=== PATIENT | female | born 1950 | race Caucasian/White ===

== ENCOUNTER 2016-12-16 20:03 | Inpatient (IN) | payer MEDICARE, OTHER ==
--- NOTE | 2016-12-16 20:37 | ED Physician Chart ---
Chief Complaint/HPI - Patient Information Date Seen:: 12/16/16 Time Seen:: 20:30 Chief Complaint:: aggressive behavior History of Present Illness:: Patient has apparently been striking out and being combative at her snf facility. She has reportedly been increasingly agitated and increasingly confused. Allergies:: Allergies Allergy/AdvReac Type Severity Reaction Status Date / Time No Known Allergies Allergy Verified 12/16/16 20:16 Vitals:: Vital Signs - 8 hr 12/16/16 20:10 Temp 97.9 F HR 80 RR 19 BP 146/70 O2 Sat % 97 Historian:: Patient Review:: Nurse's Note Reviewed, Transfer documents Reviewed Review of Systems - Review of Systems General/Constitutional: No fever, No chills Skin: No skin lesions Head: No headache Eyes: No loss of vision ENT: No earache Neck: No neck pain Cardio Vascular: No chest pain, No palpitations Pulmonary: No SOB GI: No nausea, No vomiting, No diarrhea G/U: No dysuria Musculoskeletal: No bone or joint pain Endocrine: No polyuria Psychiatric: Prior psych history Hematopoietic: No bruising Allergic/Immuno: No urticaria, No angioedema Neurological: No syncope Past Medical History - Past Medical History Past Medical History: Dementia Family History: Other (unavailable) Social History: Smoker, Care Facility Surgical History: other Psychiatricy History: Dementia, Other (schizoaffective this) Medication: Reviewed Family Medical History - Family Member Mother History Unknown: Yes Physical Exam - Physical Examination Other Gen/Cons comments:: Mildly chronically ill-appearing; patient is alert and oriented to the correct year but not the month or date. Head: Atraumatic Eyes: Lids, conjuctiva normal Other Eyes comments:: Cataract right eye Skin: Nl inspection ENMT: External ears, nose nl, Oropharynx nl Other ENMT comments:: Edentulous Neck: No nuchal rigidity Respiratory: Nl effort/Exclusion, Clear to Auscultation Cardio Vascular: RRR, No murmur, gallop, rubs, NL S1 S2 GI: No tenderness/rebounding/guarding : No CVA tenderness Other Extremities comments:: 2 x 1 cm crusted abrasion dorsum left hand Neuro/Psych: No focal deficits Misc: No paraspinal tenderness Labs/Radiology/EKG Results - Lab Results Results: Laboratory Results - last 24 hr 12/16/16 12/16/16 22:10 22:10 WBC 4.6 L RBC 4.22 Hgb 12.1 Hct 36.9 MCV 87.4 MCH 28.7 MCHC Differential 32.9 RDW 17.4 Plt Count 292 MPV 6.7 Neutrophils (Manual) 41 Lymphocytes 39 Monocytes 7 Eosinophils 8 H Basophils 5 H Platelet Estimate ADEQUATE Sodium 139 Potassium 5.0 Chloride 109 H Carbon Dioxide 27.9 Anion Gap 7.1 BUN 31 H Creatinine 1.4 H Est GFR ( Amer) 48.2 Est GFR (Non-Af Amer) 39.9 BUN/Creatinine Ratio 22.1 Glucose 110 H Calcium 11.4 H Total Bilirubin 0.3 AST 17 ALT 14 Alkaline Phosphatase 88 Total Protein 7.4 Albumin 4.1 Globulin 3.3 Albumin/Globulin Ratio 1.2 - EKG Interpretations Rate & Rhythm: normal sinus rhythm with a rate of 66 [place]: normal ED Septic Shock - . Is Septic Shock (SBP<90, OR Lactate>4 mmol\L) present?: No - <6hrs of presentation: Vital Signs: Vital Signs - 8 hr 12/16/16 20:10 Temp 97.9 F HR 80 RR 19 BP 146/70 O2 Sat % 97 Reassessment (Disposition) - Reassessment Reassessment Condition:: Unchanged - Diagnosis Diagnosis:: Dementia with agitation - Patient Disposition Admitted to:: [facility] Admitting Medical Physician:: Vick Hurd Admitting Psych Physician:: Eufemia Griffin Condition at Disposition:: Stable, Unchanged
[2016-12-16 22:18] LABS: HEMATOCRIT 36.9 % (35.0-45.0); HEMOGLOBIN 12.1 gm/dL (11.7-16.1); MEAN CELL VOLUME 87.4 fl (81-100); MEAN CORPUSCULAR HEMOGLOBIN 28.7 pg (27.0-31.0); MEAN CORPUSCULAR HGB CONC 32.9 pg (28.0-36.0); MEAN PLATELET VOLUME 6.7 fl; PLATELET COUNT 292 Th/cmm (150-400); RED BLOOD COUNT 4.22 Mil/cmm (3.80-5.20); RED CELL DISTRIBUTION WIDTH 17.4 % (11.5-20.0); WHITE BLOOD COUNT 4.6 Th/cmm (4.8-10.8)
[2016-12-16 22:33] LABS: ALB/GLOB RATIO 1.2 (1.0-1.8); ANION GAP 7.1 (7.0-16.0); BILIRUBIN,TOTAL 0.3 mg/dL (0.3-1.0); BUN/CREATININE RATIO 22.1; CALCIUM SERUM 11.4 mg/dL (8.6-10.3); CARBON DIOXIDE 27.9 mEq/L (21.0-31.0); CREATININE - SERUM 1.4 mg/dL (0.6-1.2)
[2016-12-16 22:41] LABS: BASOPHIL 5 % (0-3); EOSINOPHIL 8 % (0-5); NEUTROPHILS 41 % (40-80); TOTAL CELLS COUNTED 100
[2016-12-16 22:42] LABS: PLATELET ESTIMATE ADEQUATE (NORMAL)
[2016-12-16 23:33] LABS: URINE BILIRUBIN NEGATIVE (NEGATIVE); URINE BLOOD SMALL (NEGATIVE); URINE COLOR STRAW; URINE GLUCOSE (UA) NEGATIVE (NEGATIVE); URINE KETONE NEGATIVE (NEGATIVE); URINE PROTEIN NEGATIVE (NEGATIVE); URINE UROBILINOGEN 0.2 E.U./dL (0.2 - 1.0)
[2016-12-16 23:34] LABS: URINE BACTERIA MODERATE /hpf (NONE SEEN); URINE EPITHELIAL CELLS FEW /lpf (FEW); URINE WBC >100 /hpf (0-5)
[2016-12-17] MEDS ORDERED: Magnesium Hydroxide (MOM) 30 mL UDC PO PRN (01:03)
[2016-12-17] MEDS ORDERED: Maalox 30 mL Cup PO PRN (01:03)
[2016-12-17 01:04] VITALS: BP 127/78
--- NOTE | 2016-12-17 09:03 | History and Physical ---
History of Present Illness - HPI Chief Complaint: Increased in agitation HPI: Patient was send from SNF due that she became agitated, and aggressive to employes. Vital Signs: Last Vital Signs Temp 96.8 F 12/17/16 07:07 Pulse 75 12/17/16 07:07 Resp 20 12/17/16 07:07 BP 142/72 12/17/16 07:07 Pulse Ox 92 12/17/16 07:07 Past Medical History Pulmonary: Report: No Pertinent Hx CHEFS: Report: No Pertinent Hx GI: Report: No Pertinent Hx Psych: Report: Psychosis, Other (Dementia) Musculoskeletal: Report: Weakness Rheumatologic: Report: No pertinent Hx Infectious Disease: Report: No Pertinent Hx Renal/: Report: No Pertinent Hx Endocrine: Report: No Pertinent Hx Dermatology: Report: No Pertinent Hx - Past Surgical History Past Surgical History: No pertinent Hx Family Medical History - Family Member Mother History Unknown: Yes Ethnicity: Unknown Living Status: Unknown Hx Family Cancer: (Unknown) Hx Family Coronary Artery Disease: (Unknown) Hx Family Congestive Heart Failure: (Unknown) Hx Family Hypertension: (Unknown) Hx Family Stroke: (Unknown) Hx Family Diabetes: (Unknown) Hx Family Seizures: (Unknown) Hx Family Dementia: (Unknown) Hx Family AIDS: (Unknown) Hx Family COPD: (Unknown) Hx Family Hepatitis: (Unknown) Hx Family Psychiatric Problems: (Unknown) Hx Family Tuberculosis: (Unknown) Social History Smoke: No Alcohol: None Drugs: None Lives: [place] Domestic Violence: Negative Health Maintenance Health Maintenance: Cholesterol - Medications Home Medications: Home Medication Medication Instructions Recorded Type Acetaminophen [Tylenol] 650 mg PO Q4HR PRN 12/16/16 History Alendronate Sodium 70 mg PO QWEEK 0730 12/16/16 History Amlodipine Besylate 10 mg PO DAILY 12/16/16 History Carbidopa/Levodopa 10/100mg 1 tab PO TID 12/16/16 History [Sinemet 10 mg-100 mg] Cholecalciferol (Vitamin D3) 400 unit PO DAILY 12/16/16 History [Vitamin D3] Divalproex DR [Depakote DR] 500 mg PO BID 12/16/16 History Divalproex Sodium [Depakote] 500 mg PO BID 12/16/16 History Famotidine 20 mg PO DAILY 12/16/16 History Lorazepam [Ativan] 0.5 mg PO BID PRN 12/16/16 History QUEtiapine Fumarate [SEROquel] 600 mg PO HS 12/16/16 History Sertraline [Zoloft] 50 mg PO DAILY 12/16/16 History Zolpidem Tartrate [Ambien] 5 mg PO HS PRN 12/16/16 History - Allergies Allergies/Adverse Reactions: Allergies Allergy/AdvReac Type Severity Reaction Status Date / Time No Known Allergies Allergy Verified 12/16/16 20:16 Review of Systems - Review of Systems Constitutional: Report: No Significant Eyes: Report: No Significant ENT: Report: No Significant Respiratory: Report: No Significant Cardiovascular: Report: No Significant Gastrointestinal: Report: No Significant Genitourinary: Report: No Significant Musculoskeletal: Report: No Significant Skin: Report: No Significant Neurological: Report: Weakness Physical Exam - Physical Exam HEENT: Report: Ears Nose Throat within normal limits Neck: Report: Within normal limits Cardiovascular Systems: Report: Regular, Rate and Rhythm Respiratory: Report: Breath Sounds are within normal limits Abdomen: Report: Non-tender to palpation Back: Report: Inspection of back is within normal limits. Extremities: Report: Non-tender to palpation. Skin: Report: Color of skin is within normal limits Neuro/Psych: Report: No motor deficit - Lab Results All Lab Results last 24 hours: Laboratory Last Values WBC 4.6 Th/cmm (4.8-10.8) L 12/16/16 22:10 RBC 4.22 Mil/cmm (3.80-5.20) 12/16/16 22:10 Hgb 12.1 gm/dL (11.7-16.1) 12/16/16 22:10 Hct 36.9 % (35.0-45.0) 12/16/16 22:10 MCV 87.4 fl (81-100) 12/16/16 22:10 MCH 28.7 pg (27.0-31.0) 12/16/16 22:10 MCHC Differential 32.9 pg (28.0-36.0) 12/16/16 22:10 RDW 17.4 % (11.5-20.0) 12/16/16 22:10 Plt Count 292 Th/cmm (150-400) 12/16/16 22:10 MPV 6.7 fl 12/16/16 22:10 Neutrophils (Manual) 41 % (40-80) 12/16/16 22:10 Lymphocytes 39 % (20-50) 12/16/16 22:10 Monocytes 7 % (2-10) 12/16/16 22:10 Eosinophils 8 % (0-5) H 12/16/16 22:10 Basophils 5 % (0-3) H 12/16/16 22:10 Platelet Estimate ADEQUATE (NORMAL) 12/16/16 22:10 Sodium 139 mEq/L (136-145) 12/16/16 22:10 Potassium 5.0 mEq/L (3.5-5.1) 12/16/16 22:10 Chloride 109 mEq/L (98-107) H 12/16/16 22:10 Carbon Dioxide 27.9 mEq/L (21.0-31.0) 12/16/16 22:10 Anion Gap 7.1 (7.0-16.0) 12/16/16 22:10 BUN 31 mg/dL (7-25) H 12/16/16 22:10 Creatinine 1.4 mg/dL (0.6-1.2) H 12/16/16 22:10 Est GFR ( Amer) 48.2 ml/min (>90) 12/16/16 22:10 Est GFR (Non-Af Amer) 39.9 ml/min 12/16/16 22:10 BUN/Creatinine Ratio 22.1 12/16/16 22:10 Glucose 110 mg/dL (70-105) H 12/16/16 22:10 Calcium 11.4 mg/dL (8.6-10.3) H 12/16/16 22:10 Total Bilirubin 0.3 mg/dL (0.3-1.0) 12/16/16 22:10 AST 17 U/L (13-39) 12/16/16 22:10 ALT 14 U/L (7-52) 12/16/16 22:10 Alkaline Phosphatase 88 U/L (34-104) 12/16/16 22:10 Total Protein 7.4 gm/dL (6.0-8.3) 12/16/16 22:10 Albumin 4.1 gm/dL (3.7-5.3) 12/16/16 22:10 Globulin 3.3 gm/dL 12/16/16 22:10 Albumin/Globulin Ratio 1.2 (1.0-1.8) 12/16/16 22:10 TSH 1.92 uIU/ml (0.34-5.60) 12/16/16 22:10 Urine Source CLEAN C 12/16/16 23:00 Urine Color STRAW 12/16/16 23:00 Urine Clarity HAZY (CLEAR) 12/16/16 23:00 Urine pH 7.0 12/16/16 23:00 Ur Specific [place] 1.015 (1.005-1.030) 12/16/16 23:00 Urine Protein NEGATIVE mg/dL (NEGATIVE) 12/16/16 23:00 Urine Glucose (UA) NEGATIVE mg/dL (NEGATIVE) 12/16/16 23:00 Urine Ketones NEGATIVE mg/dL (NEGATIVE) 12/16/16 23:00 Urine Blood SMALL (NEGATIVE) H 12/16/16 23:00 Urine Nitrate NEGATIVE (NEGATIVE) 12/16/16 23:00 Urine Bilirubin NEGATIVE (NEGATIVE) 12/16/16 23:00 Urine Urobilinogen 0.2 E.U./dL (0.2 - 1.0) 12/16/16 23:00 Ur Leukocyte Esterase LARGE (NEGATIVE) H 12/16/16 23:00 Urine RBC 2-5 /hpf (0-5) 12/16/16 23:00 Urine WBC >100 /hpf (0-5) H 12/16/16 23:00 Ur Epithelial Cells FEW /lpf (FEW) 12/16/16 23:00 Urine Bacteria MODERATE /hpf (NONE SEEN) 12/16/16 23:00 Laboratory Results - last 24 hr 12/16/16 23:00 Urine Source CLEAN C Urine Color STRAW Urine Clarity HAZY Urine pH 7.0 Ur Specific [place] 1.015 Urine Protein NEGATIVE Urine Glucose (UA) NEGATIVE Urine Ketones NEGATIVE Urine Blood SMALL H Urine Nitrate NEGATIVE Urine Bilirubin NEGATIVE Urine Urobilinogen 0.2 Ur Leukocyte Esterase LARGE H Urine RBC 2-5 Urine WBC >100 H Ur Epithelial Cells FEW Urine Bacteria MODERATE - Assessment Assessment: patient is awake, calm in no acute distress. Dx: increased in agitaion, Psychosis, Dementia - Plan Plan: Patient follow by psychiatry. Will continue to monitor.
[2016-12-17] MEDS: Multivitamin Tab PO SCH (09:45)
[2016-12-17] MEDS ORDERED: Haloperidol Lactate 5 mg/mL 1mL Vial IM ONE (11:06)
[2016-12-17] MEDS ORDERED: Haloperidol Lactate 5 mg/mL 1mL Vial ONE (11:06)
[2016-12-17] MEDS ORDERED: chlorproMAZINE 25 mg/mL 2mL Amp ONE (17:21)
[2016-12-17] MEDS ORDERED: chlorproMAZINE 25 mg/mL 2mL Amp IM ONE (17:23)
--- NOTE | 2016-12-17 19:24 | Geri Psych History & Physical ---
[facility] Psych History & Physical - Date of Admission Date of Admission: 12/16/16 - Identifying Data Identifying Data: This is a 69-year-old woman resident of [facility]. She admitted here on a voluntary basis in view of her acute agitation and psychosis. - Chief Complaint Chief Complaint: I do not know. Informant: Patient - History of Present Illness History of Present Illness: This is the first psychiatric hospitalization to [facility] to this 66-year-old woman ,resident of [facility].. Patient is reported to have been diagnosed with schizo affective disorder and has been maintained on Seroquel and Depakote. Patient has been having difficult time and getting easily agitated and lgetting aggressive. patient's sleep and appetite are noted to be poor at the time of the admission. Patient has been screaming and yelling and has to be given Haldol and Benadryl and Ativan on couple of occasions to contain her agitated behavior. patient seems to be intellectually challenged and is not able to provide much information to me at the time of the evaluation. - Psychiatric Evaluation Psych General Appearance: Roughly stated age, Casually dressed Psych Behavior: Alert, Uncooperative, Restless, Agitated Psych Speech: Loud Psych Mood: Angry, Frustrated, Hostile, Irritable Psych Affect: Constricted, Inappropriate, Increased Intensity, Varibable Psych Thought Process: Tangential Psych Cognition: Confused Psych Insight: Impaired Psych Judgement: Impaired - Past Medical History Past Medical History: As per as "being primarily. Medication Psych: Schizophrenia Current Medications: Current Medications Acetaminophen (Tylenol) 650 mg PO Q4HR PRN PRN Reason: Mild Pain / Temp above 100 Stop: 02/15/17 01:02 Al Hydrox/Mg Hydrox/Simethicone (Maalox) 30 ml PO Q4HR PRN PRN Reason: GI DISTRESS Stop: 02/15/17 01:02 Divalproex Sodium (Depakote Dr) 500 mg PO BID [place]ADYS PRN Reason: Protocol Stop: 02/15/17 08:59 Last Admin: 12/17/16 16:58 Dose: 500 mg Lorazepam (Ativan) 0.5 mg PO BID PRN; Protocol PRN Reason: Anxiety Stop: 02/15/17 01:05 Magnesium Hydroxide (Milk Of Magnesia) 30 ml PO HS PRN PRN Reason: Constipation Multivitamins/Vitamin C (Theragran) 1 tab PO DAILY MILADYS Stop: 02/15/17 08:59 Last Admin: 12/17/16 09:45 Dose: Not Given Quetiapine Fumarate (Seroquel) 600 mg PO HS MILADYS PRN Reason: Protocol Stop: 02/15/17 20:59 Sertraline HCl (Zoloft) 50 mg PO DAILY MILADYS PRN Reason: Protocol Stop: 02/15/17 08:59 Last Admin: 12/17/16 09:45 Dose: Not Given Zolpidem Tartrate (Ambien) 5 mg PO HS PRN PRN Reason: Insomnia Stop: 02/15/17 01:02 Allergies/Adverse Reactions: Allergies Allergy/AdvReac Type Severity Reaction Status Date / Time No Known Allergies Allergy Verified 12/16/16 20:16 - Family History Family History: Details not known - Social History Social History: Resident of [facility] - ROS Review of System: See above Psychological ROS: Hostility, Irritability, Mood swings - Physical Examination Physical Exam: As per the primary care physician - Vitals and I&O Vitals and I&O: Vital Signs Temp 98.2 F 12/17/16 14:00 Pulse 72 12/17/16 14:00 Resp 18 12/17/16 14:00 BP 140/72 12/17/16 14:00 Pulse Ox 97 12/17/16 14:00 Intake & Output 12/17/16 12/17/16 12/18/16 06:59 18:59 06:59 Intake Total 1120 Balance 1120 Intake: Oral 1120 Other: # Voids 3 # Bowel Movements 1 - Impressions Impressions: Schizoaffective affect 2 disorder [place] I: Studies of affect 2 disorder [place] II: Mental retardation [place] III: As per the primary care physician - Treatment/Plan Treatment/Plan: He'll continue Seroquel and Depakote and use Ativan and Ambien and continue supportive therapy and follow this patient
[2016-12-18] MEDS: Multivitamin Tab PO SCH (08:00)
--- NOTE | 2016-12-18 09:20 | General Progress Note ---
Subjective - Review of Systems Service Date: 12/18/16 Subjective: Patient is awake, confused, in no acute distress. Objective - Results Result Diagrams: 12/16/16 22:10 12/16/16 22:10 Recent Labs: Laboratory Last Values WBC 4.6 Th/cmm (4.8-10.8) L 12/16/16 22:10 RBC 4.22 Mil/cmm (3.80-5.20) 12/16/16 22:10 Hgb 12.1 gm/dL (11.7-16.1) 12/16/16 22:10 Hct 36.9 % (35.0-45.0) 12/16/16 22:10 MCV 87.4 fl (81-100) 12/16/16 22:10 MCH 28.7 pg (27.0-31.0) 12/16/16 22:10 MCHC Differential 32.9 pg (28.0-36.0) 12/16/16 22:10 RDW 17.4 % (11.5-20.0) 12/16/16 22:10 Plt Count 292 Th/cmm (150-400) 12/16/16 22:10 MPV 6.7 fl 12/16/16 22:10 Neutrophils (Manual) 41 % (40-80) 12/16/16 22:10 Lymphocytes 39 % (20-50) 12/16/16 22:10 Monocytes 7 % (2-10) 12/16/16 22:10 Eosinophils 8 % (0-5) H 12/16/16 22:10 Basophils 5 % (0-3) H 12/16/16 22:10 Platelet Estimate ADEQUATE (NORMAL) 12/16/16 22:10 Sodium 139 mEq/L (136-145) 12/16/16 22:10 Potassium 5.0 mEq/L (3.5-5.1) 12/16/16 22:10 Chloride 109 mEq/L (98-107) H 12/16/16 22:10 Carbon Dioxide 27.9 mEq/L (21.0-31.0) 12/16/16 22:10 Anion Gap 7.1 (7.0-16.0) 12/16/16 22:10 BUN 31 mg/dL (7-25) H 12/16/16 22:10 Creatinine 1.4 mg/dL (0.6-1.2) H 12/16/16 22:10 Est GFR ( Amer) 48.2 ml/min (>90) 12/16/16 22:10 Est GFR (Non-Af Amer) 39.9 ml/min 12/16/16 22:10 BUN/Creatinine Ratio 22.1 12/16/16 22:10 Glucose 110 mg/dL (70-105) H 12/16/16 22:10 Calcium 11.4 mg/dL (8.6-10.3) H 12/16/16 22:10 Total Bilirubin 0.3 mg/dL (0.3-1.0) 12/16/16 22:10 AST 17 U/L (13-39) 12/16/16 22:10 ALT 14 U/L (7-52) 12/16/16 22:10 Alkaline Phosphatase 88 U/L (34-104) 12/16/16 22:10 Total Protein 7.4 gm/dL (6.0-8.3) 12/16/16 22:10 Albumin 4.1 gm/dL (3.7-5.3) 12/16/16 22:10 Globulin 3.3 gm/dL 12/16/16 22:10 Albumin/Globulin Ratio 1.2 (1.0-1.8) 12/16/16 22:10 TSH 1.92 uIU/ml (0.34-5.60) 12/16/16 22:10 Urine Source CLEAN C 12/16/16 23:00 Urine Color STRAW 12/16/16 23:00 Urine Clarity HAZY (CLEAR) 12/16/16 23:00 Urine pH 7.0 12/16/16 23:00 Ur Specific [place] 1.015 (1.005-1.030) 12/16/16 23:00 Urine Protein NEGATIVE mg/dL (NEGATIVE) 12/16/16 23:00 Urine Glucose (UA) NEGATIVE mg/dL (NEGATIVE) 12/16/16 23:00 Urine Ketones NEGATIVE mg/dL (NEGATIVE) 12/16/16 23:00 Urine Blood SMALL (NEGATIVE) H 12/16/16 23:00 Urine Nitrate NEGATIVE (NEGATIVE) 12/16/16 23:00 Urine Bilirubin NEGATIVE (NEGATIVE) 12/16/16 23:00 Urine Urobilinogen 0.2 E.U./dL (0.2 - 1.0) 12/16/16 23:00 Ur Leukocyte Esterase LARGE (NEGATIVE) H 12/16/16 23:00 Urine RBC 2-5 /hpf (0-5) 12/16/16 23:00 Urine WBC >100 /hpf (0-5) H 12/16/16 23:00 Ur Epithelial Cells FEW /lpf (FEW) 12/16/16 23:00 Urine Bacteria MODERATE /hpf (NONE SEEN) 12/16/16 23:00 - Physical Exam Vitals and I&O: Vital Signs Temp 97.5 F 12/18/16 06:46 Pulse 76 12/18/16 06:46 Resp 18 12/18/16 06:46 BP 146/76 12/18/16 06:46 Pulse Ox 95 12/18/16 06:46 Intake & Output 12/17/16 12/18/16 12/18/16 18:59 06:59 18:59 Intake Total 1120 120 Balance 1120 120 Intake: Oral 1120 120 Other: # Voids 3 3 # Bowel Movements 1 Active Medications: Current Medications Acetaminophen (Tylenol) 650 mg PO Q4HR PRN PRN Reason: Mild Pain / Temp above 100 Stop: 02/15/17 01:02 Al Hydrox/Mg Hydrox/Simethicone (Maalox) 30 ml PO Q4HR PRN PRN Reason: GI DISTRESS Stop: 02/15/17 01:02 Divalproex Sodium (Depakote Dr) 500 mg PO BID MILADYS PRN Reason: Protocol Stop: 02/15/17 08:59 Last Admin: 12/17/16 16:58 Dose: 500 mg Lorazepam (Ativan) 0.5 mg PO BID PRN; Protocol PRN Reason: Anxiety Stop: 02/15/17 01:05 Magnesium Hydroxide (Milk Of Magnesia) 30 ml PO HS PRN PRN Reason: Constipation Multivitamins/Vitamin C (Theragran) 1 tab PO DAILY MILADYS Stop: 02/15/17 08:59 Last Admin: 12/17/16 09:45 Dose: Not Given Quetiapine Fumarate (Seroquel) 600 mg PO HS MILADYS PRN Reason: Protocol Stop: 02/15/17 20:59 Last Admin: 12/17/16 21:34 Dose: Not Given Sertraline HCl (Zoloft) 50 mg PO DAILY MILADYS PRN Reason: Protocol Stop: 02/15/17 08:59 Last Admin: 12/17/16 09:45 Dose: Not Given Zolpidem Tartrate (Ambien) 5 mg PO HS PRN PRN Reason: Insomnia Stop: 02/15/17 01:02 General: Alert, Other (confused, in no acute distress. ) HEENT: Atraumatic Neck: Supple Cardiovascular: Regular rate Lungs: Clear to auscultation Abdomen: Bowel sounds, Soft Extremities: no Edema Neurological: Other (Unstable gait) Skin: Other (Warm and dry) Psych/Mental Status: Other (Patient is confused) Assessment/Plan - Assessment Assessment: patient is awake, calm in no acute distress. Dx: increased in agitaion, Psychosis, Dementia - Plan Plan: Patient follow by psychiatry. Will continue to monitor.
--- NOTE | 2016-12-18 12:58 | Geri Psych Progress Note ---
[facility] Psych Progress Note - Intro Date of Progress Note: 12/18/16 - Assessment Assessment: Still psychotic. - Vitals, I&O Vitals: Vital Signs - 24 hr 12/17/16 12/18/16 14:00 06:46 Temp 98.2 F 97.5 F HR 72 76 RR 18 18 BP 140/72 146/76 O2 Sat % 97 95 I&O: Intake & Output 12/16/16 12/17/16 12/18/16 12/19/16 06:59 06:59 06:59 06:59 Intake Total 1240 Balance 1240 - ROS Psychological ROS: Report: Anxiety, Hostility, Irritability Neurological: Report: No Significant - Objective Psych General Appearance: Report: Casually dressed Psych Behavior: Report: Uncooperative, Restless, Agitated Psych Speech: Report: Loud Psych Mood: Report: Angry, Dysthymic, Frustrated, Hostile, Irritable Psych Affect: Report: Blunted, Constricted, Increased Intensity Psych Thought Process: Report: [place], Tangential Psych Cognition: Report: Confused Psych Insight: Report: Impaired Psych Judgement: Report: Impaired - Plan Plan: To continue current meds and follow up with supportive tx. - Review of Relevant Data Review of Relevant Data: I have reviewed the following items and time [place] (where applicable) has been applied. Psych Data Reviewed: Meds - Diagnosis Diagnosis: Schizo affective Disorder. - Medications Current Medications: Current Medications Acetaminophen (Tylenol) 650 mg PO Q4HR PRN PRN Reason: Mild Pain / Temp above 100 Stop: 02/15/17 01:02 Al Hydrox/Mg Hydrox/Simethicone (Maalox) 30 ml PO Q4HR PRN PRN Reason: GI DISTRESS Stop: 02/15/17 01:02 Divalproex Sodium (Depakote Dr) 500 mg PO BID MILADYS PRN Reason: Protocol Stop: 02/15/17 08:59 Last Admin: 12/18/16 08:00 Dose: Not Given Lorazepam (Ativan) 0.5 mg PO BID PRN; Protocol PRN Reason: Anxiety Stop: 02/15/17 01:05 Magnesium Hydroxide (Milk Of Magnesia) 30 ml PO HS PRN PRN Reason: Constipation Multivitamins/Vitamin C (Theragran) 1 tab PO DAILY MILADYS Stop: 02/15/17 08:59 Last Admin: 12/18/16 08:00 Dose: Not Given Quetiapine Fumarate (Seroquel) 600 mg PO HS MILADYS PRN Reason: Protocol Stop: 02/15/17 20:59 Last Admin: 12/17/16 21:34 Dose: Not Given Sertraline HCl (Zoloft) 50 mg PO DAILY MILADYS PRN Reason: Protocol Stop: 02/15/17 08:59 Last Admin: 12/18/16 09:00 Dose: Not Given Zolpidem Tartrate (Ambien) 5 mg PO HS PRN PRN Reason: Insomnia Stop: 02/15/17 01:02
[2016-12-18] MEDS: Sulfamethoxazole/TMP 800/160mg Tab PO SCH (17:00)
[2016-12-19] MEDS: Multivitamin Tab PO SCH (09:26)
[2016-12-19] MEDS: Sulfamethoxazole/TMP 800/160mg Tab PO SCH ×2 (09:26→17:19)
--- NOTE | 2016-12-19 10:05 | General Progress Note ---
Subjective - Review of Systems Service Date: 12/19/16 Subjective: Patient is awake, confused, in no acute distress. Objective - Results Result Diagrams: 12/16/16 22:10 12/16/16 22:10 Recent Labs: Laboratory Last Values WBC 4.6 Th/cmm (4.8-10.8) L 12/16/16 22:10 RBC 4.22 Mil/cmm (3.80-5.20) 12/16/16 22:10 Hgb 12.1 gm/dL (11.7-16.1) 12/16/16 22:10 Hct 36.9 % (35.0-45.0) 12/16/16 22:10 MCV 87.4 fl (81-100) 12/16/16 22:10 MCH 28.7 pg (27.0-31.0) 12/16/16 22:10 MCHC Differential 32.9 pg (28.0-36.0) 12/16/16 22:10 RDW 17.4 % (11.5-20.0) 12/16/16 22:10 Plt Count 292 Th/cmm (150-400) 12/16/16 22:10 MPV 6.7 fl 12/16/16 22:10 Neutrophils (Manual) 41 % (40-80) 12/16/16 22:10 Lymphocytes 39 % (20-50) 12/16/16 22:10 Monocytes 7 % (2-10) 12/16/16 22:10 Eosinophils 8 % (0-5) H 12/16/16 22:10 Basophils 5 % (0-3) H 12/16/16 22:10 Platelet Estimate ADEQUATE (NORMAL) 12/16/16 22:10 Sodium 139 mEq/L (136-145) 12/16/16 22:10 Potassium 5.0 mEq/L (3.5-5.1) 12/16/16 22:10 Chloride 109 mEq/L (98-107) H 12/16/16 22:10 Carbon Dioxide 27.9 mEq/L (21.0-31.0) 12/16/16 22:10 Anion Gap 7.1 (7.0-16.0) 12/16/16 22:10 BUN 31 mg/dL (7-25) H 12/16/16 22:10 Creatinine 1.4 mg/dL (0.6-1.2) H 12/16/16 22:10 Est GFR ( Amer) 48.2 ml/min (>90) 12/16/16 22:10 Est GFR (Non-Af Amer) 39.9 ml/min 12/16/16 22:10 BUN/Creatinine Ratio 22.1 12/16/16 22:10 Glucose 110 mg/dL (70-105) H 12/16/16 22:10 Calcium 11.4 mg/dL (8.6-10.3) H 12/16/16 22:10 Total Bilirubin 0.3 mg/dL (0.3-1.0) 12/16/16 22:10 AST 17 U/L (13-39) 12/16/16 22:10 ALT 14 U/L (7-52) 12/16/16 22:10 Alkaline Phosphatase 88 U/L (34-104) 12/16/16 22:10 Total Protein 7.4 gm/dL (6.0-8.3) 12/16/16 22:10 Albumin 4.1 gm/dL (3.7-5.3) 12/16/16 22:10 Globulin 3.3 gm/dL 12/16/16 22:10 Albumin/Globulin Ratio 1.2 (1.0-1.8) 12/16/16 22:10 TSH 1.92 uIU/ml (0.34-5.60) 12/16/16 22:10 Urine Source CLEAN C 12/16/16 23:00 Urine Color STRAW 12/16/16 23:00 Urine Clarity HAZY (CLEAR) 12/16/16 23:00 Urine pH 7.0 12/16/16 23:00 Ur Specific [place] 1.015 (1.005-1.030) 12/16/16 23:00 Urine Protein NEGATIVE mg/dL (NEGATIVE) 12/16/16 23:00 Urine Glucose (UA) NEGATIVE mg/dL (NEGATIVE) 12/16/16 23:00 Urine Ketones NEGATIVE mg/dL (NEGATIVE) 12/16/16 23:00 Urine Blood SMALL (NEGATIVE) H 12/16/16 23:00 Urine Nitrate NEGATIVE (NEGATIVE) 12/16/16 23:00 Urine Bilirubin NEGATIVE (NEGATIVE) 12/16/16 23:00 Urine Urobilinogen 0.2 E.U./dL (0.2 - 1.0) 12/16/16 23:00 Ur Leukocyte Esterase LARGE (NEGATIVE) H 12/16/16 23:00 Urine RBC 2-5 /hpf (0-5) 12/16/16 23:00 Urine WBC >100 /hpf (0-5) H 12/16/16 23:00 Ur Epithelial Cells FEW /lpf (FEW) 12/16/16 23:00 Urine Bacteria MODERATE /hpf (NONE SEEN) 12/16/16 23:00 RPR NONREACTIVE (NONREACTIVE) 12/16/16 22:10 - Physical Exam Vitals and I&O: Vital Signs Temp 98.0 F 12/18/16 20:00 Pulse 84 12/18/16 20:00 Resp 20 12/18/16 20:00 BP 150/78 12/18/16 20:00 Pulse Ox 96 12/18/16 20:00 Intake & Output 12/18/16 12/19/16 12/19/16 18:59 06:59 18:59 Intake Total 800 300 Balance 800 300 Intake: Oral 800 300 Other: # Voids 4 2 # Bowel Movements 1 Active Medications: Current Medications Acetaminophen (Tylenol) 650 mg PO Q4HR PRN PRN Reason: Mild Pain / Temp above 100 Stop: 02/15/17 01:02 Al Hydrox/Mg Hydrox/Simethicone (Maalox) 30 ml PO Q4HR PRN PRN Reason: GI DISTRESS Stop: 02/15/17 01:02 Divalproex Sodium (Depakote Dr) 500 mg PO BID [facility] PRN Reason: Protocol Stop: 02/15/17 08:59 Last Admin: 12/19/16 09:26 Dose: 500 mg Lorazepam (Ativan) 0.5 mg PO BID PRN; Protocol PRN Reason: Anxiety Stop: 02/15/17 01:05 Last Admin: 12/19/16 09:30 Dose: 0.5 mg Magnesium Hydroxide (Milk Of Magnesia) 30 ml PO HS PRN PRN Reason: Constipation Multivitamins/Vitamin C (Theragran) 1 tab PO DAILY [facility] Stop: 02/15/17 08:59 Last Admin: 12/19/16 09:26 Dose: 1 tab Mupirocin (Bactroban Oint) 1 appl NS BID [facility] Stop: 12/23/16 09:01 Last Admin: 12/19/16 09:27 Dose: 1 appl Nitrofurantoin Macrocrystals (Macrodantin) 100 mg PO BID [facility] PRN Reason: Protocol Stop: 02/17/17 10:14 Quetiapine Fumarate (Seroquel) 600 mg PO HS [facility] PRN Reason: Protocol Stop: 02/15/17 20:59 Last Admin: 12/18/16 20:24 Dose: 600 mg Sertraline HCl (Zoloft) 50 mg PO DAILY [facility] PRN Reason: Protocol Stop: 02/15/17 08:59 Last Admin: 12/19/16 09:27 Dose: 50 mg Trimethoprim/Sulfamethoxazole (Bactrim Ds) 1 tab PO BID [facility] Stop: 02/16/17 16:59 Last Admin: 12/19/16 09:26 Dose: 1 tab Zolpidem Tartrate (Ambien) 5 mg PO HS PRN PRN Reason: Insomnia Stop: 02/15/17 01:02 Last Admin: 12/18/16 22:27 Dose: 5 mg General: Alert, Other (confused, in no acute distress. ) HEENT: Atraumatic Neck: Supple Cardiovascular: Regular rate Lungs: Clear to auscultation Abdomen: Bowel sounds, Soft Extremities: no Edema Neurological: Other (Unstable gait) Skin: Other (Warm and dry) Psych/Mental Status: Other (Patient is confused) Assessment/Plan - Assessment Assessment: patient is awake, calm in no acute distress. Dx: increased in agitaion, Psychosis, Dementia, UTI - Plan Plan: Patient follow by psychiatry. Will continue to monitor.
[2016-12-19] MEDS ORDERED: Nitrofurantoin, Macrocrystals 50 mg Cap PO SCH (10:15)
--- NOTE | 2016-12-19 10:25 | [facility] Psych Progress Note ---
[facility] Psych Progress Note - Intro Date of Progress Note: 12/19/16 - Assessment Assessment: Still psychotic. - Vitals, I&O Vitals: Vital Signs - 24 hr 12/18/16 12/18/16 12/18/16 16:35 19:58 20:00 Temp 97.9 F 98.0 F HR 83 84 HR [Radial] 84 RR 20 20 20 BP 152/76 150/78 O2 Sat % 96 96 I&O: Intake & Output 12/17/16 12/18/16 12/19/16 12/20/16 06:59 06:59 06:59 06:59 Intake Total 1240 1100 Balance 1240 1100 - ROS Psychological ROS: Report: Anxiety, Hallucinations, Hostility, Irritability Neurological: Report: No Significant - Objective Psych General Appearance: Report: Casually dressed Psych Behavior: Report: Alert, Uncooperative, Agitated, Confrontational Psych Speech: Report: Loud Psych Mood: Report: Angry, Hostile, Irritable Psych Affect: Report: Constricted, Increased Range, Labile Psych Thought Process: Report: Circumstantial, [place] Psych Cognition: Report: Confused Psych Insight: Report: Impaired Psych Judgement: Report: Impaired - Plan Plan: To continue current meds and follow up with supportive tx. - Review of Relevant Data Review of Relevant Data: I have reviewed the following items and time [facility] (where applicable) has been applied. Psych Data Reviewed: Meds - Diagnosis Diagnosis: Psychosis Unspecified. - Medications Current Medications: Current Medications Acetaminophen (Tylenol) 650 mg PO Q4HR PRN PRN Reason: Mild Pain / Temp above 100 Stop: 02/15/17 01:02 Al Hydrox/Mg Hydrox/Simethicone (Maalox) 30 ml PO Q4HR PRN PRN Reason: GI DISTRESS Stop: 02/15/17 01:02 Divalproex Sodium (Depakote Dr) 500 mg PO BID [facility] PRN Reason: Protocol Stop: 02/15/17 08:59 Last Admin: 12/19/16 09:26 Dose: 500 mg Lorazepam (Ativan) 0.5 mg PO BID PRN; Protocol PRN Reason: Anxiety Stop: 02/15/17 01:05 Last Admin: 12/19/16 09:30 Dose: 0.5 mg Magnesium Hydroxide (Milk Of Magnesia) 30 ml PO HS PRN PRN Reason: Constipation Multivitamins/Vitamin C (Theragran) 1 tab PO DAILY [facility] Stop: 02/15/17 08:59 Last Admin: 12/19/16 09:26 Dose: 1 tab Mupirocin (Bactroban Oint) 1 appl NS BID [facility] Stop: 12/23/16 09:01 Last Admin: 12/19/16 09:27 Dose: 1 appl Nitrofurantoin Macrocrystals (Macrodantin) 100 mg PO DAILY [facility] PRN Reason: Protocol Stop: 02/17/17 10:14 Quetiapine Fumarate (Seroquel) 600 mg PO HS [facility] PRN Reason: Protocol Stop: 02/15/17 20:59 Last Admin: 12/18/16 20:24 Dose: 600 mg Sertraline HCl (Zoloft) 50 mg PO DAILY [facility] PRN Reason: Protocol Stop: 02/15/17 08:59 Last Admin: 12/19/16 09:27 Dose: 50 mg Trimethoprim/Sulfamethoxazole (Bactrim Ds) 1 tab PO BID [facility] Stop: 02/16/17 16:59 Last Admin: 12/19/16 09:26 Dose: 1 tab Zolpidem Tartrate (Ambien) 5 mg PO HS PRN PRN Reason: Insomnia Stop: 02/15/17 01:02 Last Admin: 12/18/16 22:27 Dose: 5 mg
--- NOTE | 2016-12-20 08:56 | General Progress Note ---
Subjective - Review of Systems Service Date: 12/20/16 Subjective: Patient is awake, confused, in no acute distress. Objective - Results Result Diagrams: 12/16/16 22:10 12/16/16 22:10 Recent Labs: Laboratory Last Values WBC 4.6 Th/cmm (4.8-10.8) L 12/16/16 22:10 RBC 4.22 Mil/cmm (3.80-5.20) 12/16/16 22:10 Hgb 12.1 gm/dL (11.7-16.1) 12/16/16 22:10 Hct 36.9 % (35.0-45.0) 12/16/16 22:10 MCV 87.4 fl (81-100) 12/16/16 22:10 MCH 28.7 pg (27.0-31.0) 12/16/16 22:10 MCHC Differential 32.9 pg (28.0-36.0) 12/16/16 22:10 RDW 17.4 % (11.5-20.0) 12/16/16 22:10 Plt Count 292 Th/cmm (150-400) 12/16/16 22:10 MPV 6.7 fl 12/16/16 22:10 Neutrophils (Manual) 41 % (40-80) 12/16/16 22:10 Lymphocytes 39 % (20-50) 12/16/16 22:10 Monocytes 7 % (2-10) 12/16/16 22:10 Eosinophils 8 % (0-5) H 12/16/16 22:10 Basophils 5 % (0-3) H 12/16/16 22:10 Platelet Estimate ADEQUATE (NORMAL) 12/16/16 22:10 Sodium 139 mEq/L (136-145) 12/16/16 22:10 Potassium 5.0 mEq/L (3.5-5.1) 12/16/16 22:10 Chloride 109 mEq/L (98-107) H 12/16/16 22:10 Carbon Dioxide 27.9 mEq/L (21.0-31.0) 12/16/16 22:10 Anion Gap 7.1 (7.0-16.0) 12/16/16 22:10 BUN 31 mg/dL (7-25) H 12/16/16 22:10 Creatinine 1.4 mg/dL (0.6-1.2) H 12/16/16 22:10 Est GFR ( Amer) 48.2 ml/min (>90) 12/16/16 22:10 Est GFR (Non-Af Amer) 39.9 ml/min 12/16/16 22:10 BUN/Creatinine Ratio 22.1 12/16/16 22:10 Glucose 110 mg/dL (70-105) H 12/16/16 22:10 Calcium 11.4 mg/dL (8.6-10.3) H 12/16/16 22:10 Total Bilirubin 0.3 mg/dL (0.3-1.0) 12/16/16 22:10 AST 17 U/L (13-39) 12/16/16 22:10 ALT 14 U/L (7-52) 12/16/16 22:10 Alkaline Phosphatase 88 U/L (34-104) 12/16/16 22:10 Total Protein 7.4 gm/dL (6.0-8.3) 12/16/16 22:10 Albumin 4.1 gm/dL (3.7-5.3) 12/16/16 22:10 Globulin 3.3 gm/dL 12/16/16 22:10 Albumin/Globulin Ratio 1.2 (1.0-1.8) 12/16/16 22:10 TSH 1.92 uIU/ml (0.34-5.60) 12/16/16 22:10 Urine Source CLEAN C 12/16/16 23:00 Urine Color STRAW 12/16/16 23:00 Urine Clarity HAZY (CLEAR) 12/16/16 23:00 Urine pH 7.0 12/16/16 23:00 Ur Specific [place] 1.015 (1.005-1.030) 12/16/16 23:00 Urine Protein NEGATIVE mg/dL (NEGATIVE) 12/16/16 23:00 Urine Glucose (UA) NEGATIVE mg/dL (NEGATIVE) 12/16/16 23:00 Urine Ketones NEGATIVE mg/dL (NEGATIVE) 12/16/16 23:00 Urine Blood SMALL (NEGATIVE) H 12/16/16 23:00 Urine Nitrate NEGATIVE (NEGATIVE) 12/16/16 23:00 Urine Bilirubin NEGATIVE (NEGATIVE) 12/16/16 23:00 Urine Urobilinogen 0.2 E.U./dL (0.2 - 1.0) 12/16/16 23:00 Ur Leukocyte Esterase LARGE (NEGATIVE) H 12/16/16 23:00 Urine RBC 2-5 /hpf (0-5) 12/16/16 23:00 Urine WBC >100 /hpf (0-5) H 12/16/16 23:00 Ur Epithelial Cells FEW /lpf (FEW) 12/16/16 23:00 Urine Bacteria MODERATE /hpf (NONE SEEN) 12/16/16 23:00 RPR NONREACTIVE (NONREACTIVE) 12/16/16 22:10 - Physical Exam Vitals and I&O: Vital Signs Temp 97.2 F 12/20/16 05:29 Pulse 75 12/20/16 05:29 Resp 18 12/20/16 05:29 BP 134/71 12/20/16 05:29 Pulse Ox 93 12/20/16 05:29 Intake & Output 12/19/16 12/20/16 12/20/16 18:59 06:59 18:59 Intake Total 200 Balance 200 Intake: Oral 200 Other: # Voids 1 Active Medications: Current Medications Acetaminophen (Tylenol) 650 mg PO Q4HR PRN PRN Reason: Mild Pain / Temp above 100 Stop: 02/15/17 01:02 Al Hydrox/Mg Hydrox/Simethicone (Maalox) 30 ml PO Q4HR PRN PRN Reason: GI DISTRESS Stop: 02/15/17 01:02 Divalproex Sodium (Depakote Dr) 500 mg PO BID [facility] PRN Reason: Protocol Stop: 02/15/17 08:59 Last Admin: 12/19/16 17:18 Dose: 500 mg Lorazepam (Ativan) 0.5 mg PO BID PRN; Protocol PRN Reason: Anxiety Stop: 02/15/17 01:05 Last Admin: 12/19/16 17:23 Dose: 0.5 mg Magnesium Hydroxide (Milk Of Magnesia) 30 ml PO HS PRN PRN Reason: Constipation Multivitamins/Vitamin C (Theragran) 1 tab PO DAILY [facility] Stop: 02/15/17 08:59 Last Admin: 12/19/16 09:26 Dose: 1 tab Mupirocin (Bactroban Oint) 1 appl NS BID [facility] Stop: 12/23/16 09:01 Last Admin: 12/19/16 17:18 Dose: 1 appl Quetiapine Fumarate (Seroquel) 600 mg PO HS [facility] PRN Reason: Protocol Stop: 02/15/17 20:59 Last Admin: 12/19/16 20:25 Dose: 600 mg Sertraline HCl (Zoloft) 50 mg PO DAILY [facility] PRN Reason: Protocol Stop: 02/15/17 08:59 Last Admin: 12/19/16 09:27 Dose: 50 mg Trimethoprim/Sulfamethoxazole (Bactrim Ds) 1 tab PO BID [facility] Stop: 02/16/17 16:59 Last Admin: 12/19/16 17:19 Dose: 1 tab Zolpidem Tartrate (Ambien) 5 mg PO HS PRN PRN Reason: Insomnia Stop: 02/15/17 01:02 Last Admin: 12/19/16 20:25 Dose: 5 mg General: Alert, Other (confused, in no acute distress. ) HEENT: Atraumatic Neck: Supple Cardiovascular: Regular rate Lungs: Clear to auscultation Abdomen: Bowel sounds, Soft Extremities: no Edema Neurological: Other (Unstable gait) Skin: Other (Warm and dry) Psych/Mental Status: Other (Patient is confused) Assessment/Plan - Assessment Assessment: patient is awake, calm in no acute distress. Dx: increased in agitaion, Psychosis, Dementia, UTI - Plan Plan: Patient follow by psychiatry. Will continue to monitor.
[2016-12-20] MEDS: Multivitamin Tab PO SCH (11:18)
[2016-12-20] MEDS: Sulfamethoxazole/TMP 800/160mg Tab PO SCH (11:19)
== END 2016-12-20 13:45 | disposition home or self-care (01) | DRG 885 ==
LOC: ER 20:03 → GERO 22:30
PROVIDERS: ADMIT Psychiatry & Neurology Psychiatry; ATTEND Psychiatry & Neurology Psychiatry
DX: F25.9 Schizoaffective disorder, unspecified (principal); F03.90 Unspecified dementia, unspecified severity, without behavioral disturbance, psychotic disturbance, mood disturbance, and anxiety; N39.0 Urinary tract infection, site not specified; F79 Unspecified intellectual disabilities; F17.210 Nicotine dependence, cigarettes, uncomplicated; F29 Unspecified psychosis not due to a substance or known physiological condition
CPT/HCPCS: 36415-UA; 80053-TC; 81001-TC; 84443-TC; 85007-TC; 85027-TC; 86592-TC; 87086-90; 93005; J1200; J1630; J2060; J3230